=== PATIENT | female | born 1975 | race Hispanic/Latino ===

== ENCOUNTER 2020-05-18 10:02 | Day surgery (SDC) | payer OTHER ==
[2020-05-11 14:36] LABS: Urine Appearance CLEAR; Urine Bilirubin NEGATIVE (NEG); Urine Blood NEGATIVE (NEG); Urine Color YELLOW; Urine Glucose NEGATIVE (NEG); Urine Protein NEGATIVE (NEG); Urine Specific Gravity 1.015 (1.005-1.030); Urine Urobilinogen 0.2 mg/dL (0.2-1.0); Urine pH 6.5 (5.0-7.0)
[2020-05-11 14:38] LABS: Urine Microscopic Reflex NO UMIC
[2020-05-11 14:49] LABS: Absolute Lymphocytes (CBC) 1.5 K/uL (0.7-4.9); Basophils % 0.7 % (0-1.3); Hematocrit 41.2 % (36.0-45.0); Lymphocytes % 17.6 % (15.3-44.8); MPV 8.8 fL (7.6-11.3); RBC Red Blood Cell Count 4.46 M/uL (3.86-4.86)
[2020-05-18 10:32] LABS: Specific Gravity 1.015 (1.005-1.030)
[2020-05-18] MEDS ORDERED: Ringers Lactate 1,000 ML IV ONE (10:45)
[2020-05-18] MEDS ORDERED: SCOPOLAMINE HYDROBROMIDE PATCH TD ONE (10:45)
[2020-05-18] MEDS ORDERED: CEFAZOLIN/SWI 1gm 1 GM/10 ML SYR ONE (10:45)
[2020-05-18] MEDS ORDERED: CEFAZOLIN/SWI 2gm 2 GM/20 ML SYR ONE (10:51)
[2020-05-18] MEDS ORDERED: NA CHLORIDE 0.9% 1,000 ML ONE (11:23)
[2020-05-18] MEDS ORDERED: LIDOCAINE 1% MPF 5 ML VIAL ONE (11:54)
[2020-05-18] MEDS ORDERED: propofoL 200 MG/20 ML VIAL IV ONE (11:54)
[2020-05-18] MEDS ORDERED: FENTANYL CITR 100 MCG/2 ML ONE ×2 (11:54→13:06)
[2020-05-18] MEDS ORDERED: ROCURONIUM 50 MG/5 ML VIAL IV ONE ×2 (11:54→13:15)
[2020-05-18] MEDS ORDERED: MIDAZOLAM HCL 2 MG/2 ML INJ ONE (11:54)
[2020-05-18] MEDS: BUPIVACAINE 0.25% PF 30 ML VIAL ONE ×2 (12:12→12:45)
[2020-05-18] MEDS ORDERED: ONDANSETRON 4 MG/2 ML VIAL ONE (12:57)
[2020-05-18] MEDS ORDERED: GLYCOPYRROLATE 0.2 MG/ML SYR ONE (13:15)
[2020-05-18] MEDS ORDERED: NEOSTIGMINE 1 MG/ML -5 ML ONE (13:16)
[2020-05-18] MEDS ORDERED: KETOROLAC 30 MG/ML INJ ONE (13:20)
[2020-05-18] MEDS ORDERED: dexAMETHasone 4 MG/ML VIAL ONE (13:20)
[2020-05-18] MEDS: HYDROMORPHONE HCL 1 MG/ML INJ ONE ×4 (14:08→14:28)
[2020-05-18] MEDS ORDERED: PROMETHAZINE INJ 25 MG/ML AMP ONE (14:43)
[2020-05-18 15:02] VITALS: BP 108/66; TEMP 97.6; O2SAT 96
[2020-05-18] MEDS ORDERED: IBUPROFEN 200 MG TAB PO ONE (15:22)
[2020-05-18] MEDS ORDERED: IBUPROFEN 400 MG TAB ONE (15:23)
--- NOTE | 2020-05-19 02:01 | OP ---
Date of Procedure: 05/18/2020 Surgeon: Tameka Valentin MD [employer]: Smitha Alaniz. Preoperative Diagnoses: Menorrhagia, dysmenorrhea, and pelvic pain. Postoperative Diagnoses: Menorrhagia, dysmenorrhea, pelvic pain, and endometriosis. Procedures Performed: Diagnostic hysteroscopy, endometrial ablation with NovaSure, diagnostic laparo scopy, endometriosis excision, lysis of adhesions, and laparoscopic bilateral salpingectomy. Anesthesia: General endotracheal. Estimated Blood Loss: Minimal. Specimens: Bilateral tubes and left lateral wall endometriosis near the pelvic brim lateral to the i nfundibulopelvic ligament and left distal uterosacral ligament. Findings: Endometrial cavity undistorted. Excellent ablation effect after the ablation was done. T he cavity was irrigated and visualized. Endometriosis seen at the pelvic brim lateral to the tube and infundibulopelvic ligament in the area below the level of the natural attachment of the sigmoid colon and also in the mesosalpinx of the lef t side. There were adhesions of the colon here that had to be taken down and then later endometriosi s had to be excised and there was an implant on the peritoneum on the left side lateral to the distal uterosacral attachment between the ureteric tunnel and the tubes had some hydropic changes on both s ides, but no specific distortion. Ovaries unremarkable. Left ovarian cyst that appeared to be physi ological had to be drained in order for me to perform the surgery. Ablation details, cavity length 5 cm, width 4.8, power 132 oliver, and time was 1 minute and 19 second s. Then, the patient presented with bleeding and pelvic pain. She was evaluated with transvaginal ultra sound and endometrial sampling was performed. No evidence of atypia or malignancy was seen. Then, d iscussed all the different options and she chose to proceed with this. She was consented and brought to the OR. Description Of Procedure: After informed consent was verified, she was taken back to OR. She was de finitely completed with the childbearing, although she did not seek a sterilization procedure due to the ablation that needed to be done to control her bleeding. She understood that this would be a fet al contraindication for future conception and that tubal ligation would be appropriate or medically n ecessary, so she was consented appropriately if endometriosis was seen that she would undergo a salpi ngectomy also to decrease the risk of ovarian cancer in a patient with age of while perfor gideon a permanent sterilization procedure that by ACOG guidelines bilateral salpingectomy was indicate d. The patient was placed in supine fashion on the operating table. General anesthesia given, placed in dorsal lithotomy position using Brett stirrups. Abdomen, vulva, vagina, and perineum prepped and dr aped in a sterile fashion. Cunha placed to drain the bladder and speculum placed to expose the cervi x. Anterior lip grasped with 2 Allis clamps. Diagnostic hysteroscopy was performed and direct measu rements of the uterine cavity sounding length of 9 cm with cervical length of 4 cm was measured and c alculated cavity length of 5 cm was entered into the NovaSure generator. Then, once the scope was re moved, the NovaSure device was primed and placed into the uterine cavity, deployed. Cavity width was 4.8 cm. Then, started the cavity integrity test, which did not pass and this was because of the All is clamps in the front, so they were taken out and 1 single-tooth tenaculum was placed. Then, the te st passed without any problems. The patient did well. The ablation cycle was conducted uninterrupte d for 1 minute and 19 seconds. After the device was undeployed, hysteroscopy was performed. We irri gated the cavity. There was excellent ablation effect in the entire endometrial cavity. The scope w as pulled out. Diagnostic VCare was introduced. This area was draped. A 1 cm infraumbilical incision made with a scalpel using the open laparoscopy technique. Fascia was incised and cut, tagged with 0 Vicryl sutures on both edges. Peritoneum entered bluntly. S-retracto rs were placed, Chana introduced. Site of entry was checked, unremarkable. Appendix was normal and the upper abdominal and peritoneal surfaces all completely unremarkable. After the patient was plac ed in Trendelenburg, 5 mm left lower quadrant and suprapubic incisions were made. There were omental adhesions to the anterior abdominal wall. Using the LigaSure, these were first taken down. Then, a nother 5 port was placed in the left upper quadrant in order for me to remove the endometriosis above the level of the pelvic brim. So, once this was placed, then the adhesions were taken down in a sha rp fashion with scissors as well as with the LigaSure. Once all the adhesions were taken down from t he left lateral wall, infundibulopelvic ligament and mesosalpinx were well visualized and peritoneum was then opened lateral to the endometriosis implants sharply and then peritoneal dissection was perf ormed all the way around this implant widely, and once the peritoneum with implants was excised, this was removed and handed off for permanent pathology. There was a completely normal-appearing tissue after the dissection was done and excellent hemostasis. Then, the tubes were taken down with the LigaSure on both sides, then retrieved and labeled appropria tely. Pelvic peritoneum was excised in the area of the implant as described above. This was immedia tely lateral to the distal left uterosacral ligament between the uterine artery, ureteric tunnel, and the uterosacral. So, wide excision was performed carefully, underlying tissues protected with a mon opolar hook blade and some small areas of the fat had to be taken down for the implant to completely come out. This implant was handed off for permanent pathology. No other implants were seen anterior ly. There were scars of the previous scar. No other implants. After visualizing the appen jodi thorough irrigation and suction was performed in the pelvic cavity and trocars were re moved under direct vision. Gas was desufflated. All the injection skin and fascial sites were injec tobias with Marcaine at entry and exit. The fascial incision at the umbilicus after closely tagged 0 Vi cryl sutures tied to each other was injected with Marcaine as well of the umbilicus. All skin incisions were closed with interrupted 4-0 Vicryl sutures. VCare and Cunha were removed. Instr ument, needle, and sponge counts were correct at the end of the case. The patient tolerated the procedure well. She will be discharged home today. She has 1 week followup with us. GULSHAN/RASTA Voice ID: [id number] Report ID: [id number]
== END 2020-05-18 16:10 | disposition home or self-care (01) ==
LOC: OR 10:02
PROVIDERS: ATTEND Obstetrics & Gynecology
PROC: 0U5B8ZZ Destruction of Endometrium, Via Natural or Artificial Opening Endoscopic (ICD-10-PCS; 2020-05-18)
PROC: 0DBW4ZZ Excision of Peritoneum, Percutaneous Endoscopic Approach (ICD-10-PCS; 2020-05-18)
PROC: 0UT74ZZ Resection of Bilateral Fallopian Tubes, Percutaneous Endoscopic Approach (ICD-10-PCS; principal; 2020-05-18 12:00)
DX: N92.0 Excessive and frequent menstruation with regular cycle (principal); N94.6 Dysmenorrhea, unspecified; N94.3 Premenstrual tension syndrome; N80.3 Endometriosis of pelvic peritoneum; N83.8 Other noninflammatory disorders of ovary, fallopian tube and broad ligament; K66.0 Peritoneal adhesions (postprocedural) (postinfection); N83.202 Unspecified ovarian cyst, left side; Z11.59 Encounter for screening for other viral diseases; J45.40 Moderate persistent asthma, uncomplicated; Z79.51 Long term (current) use of inhaled steroids
CPT/HCPCS: 58661; 58563; 58662; 85025; 36415; 86900; 86850; 81025; 86901; 88302; 88305; 81003; U0002; J2704; J2550; J2250; J3010 ×2; J1170 ×2; J2710; J0690 ×2; J7120; J7030; J2405

== ENCOUNTER 2021-06-29 09:36 | Day surgery (SDC) | payer OTHER ==
[~2021-06-29 09:36] MED LIST: CEFOXITIN/SWI 2gm 2 GM/20 ML SYR IV ONE
[2021-06-29] MEDS ORDERED: MIDAZOLAM HCL 2 MG/2 ML INJ ONE (10:16)
[2021-06-29] MEDS ORDERED: propofoL 200 MG/20 ML VIAL IV ONE (10:16)
[2021-06-29] MEDS ORDERED: GLYCOPYRROLATE 0.2 MG/ML SYR ONE (10:18)
[2021-06-29] MEDS ORDERED: ONDANSETRON 4 MG/2 ML VIAL ONE ×2 (10:19→13:25)
[2021-06-29] MEDS ORDERED: FENTANYL CITR 250 MCG/5 ML ONE (10:19)
[2021-06-29] MEDS ORDERED: ROCURONIUM 50 MG/5 ML VIAL IV ONE (10:19)
[2021-06-29] MEDS ORDERED: LIDOCAINE 2% MPF 5 ML VIAL ONE (10:19)
[2021-06-29] MEDS ORDERED: Ringers Lactate 1,000 ML IV ONE ×2 (10:22→13:01)
[2021-06-29] MEDS ORDERED: CEFOXITIN/SWI 2gm 2 GM/20 ML SYR IVP ONE (11:00)
[2021-06-29] MEDS ORDERED: dexAMETHasone 10 MG/ML VIAL ONE (11:04)
[2021-06-29] MEDS ORDERED: CELECOXIB 100 MG CAPSULE ONE (11:17)
[2021-06-29] MEDS ORDERED: BUPIVACAINE 0.25% PF 10 ML VIAL ONE (11:49)
[2021-06-29] MEDS ORDERED: ACETAMINOPHEN 500 MG TAB PO ONE (12:00)
[2021-06-29] MEDS ORDERED: SCOPOLAMINE HYDROBROMIDE PATCH TD ONE (12:03)
--- NOTE | 2021-06-29 12:36 | P.OP ---
Preoperative diagnosis: Cholelithiasis with Cholecystitis Postoperative diagnosis: Cholelithiasis with Cholecystitis Primary procedure: Laparoscopic Cholecystectomy Secondary procedure: ICG Cholangiography Anesthesia: GETA + Local Estimated blood loss: <2cc Specimen: Gallbladder Findings: short cystic duct, distended gallbladder Complications: None Transferred to: Recovery Room Condition: Good
[2021-06-29] MEDS: HYDROMORPHONE HCL 1 MG/ML INJ ONE ×2 (13:00→13:05)
[2021-06-29] MEDS ORDERED: KETOROLAC 30 MG/ML INJ ONE (13:02)
[2021-06-29 13:07] VITALS: O2SAT 99
[2021-06-29] MEDS ORDERED: HYDROCODONE/APAP 10/325 TAB ONE (14:10)
[2021-06-29 14:43] VITALS: BP 120/64; TEMP 97
--- NOTE | 2021-06-30 00:25 | OP ---
Date of Procedure: 06/29/2021 Surgeon: Kofi Jimenez MD, Preoperative Diagnoses: Cholelithiasis, cholecystitis. Postoperative Diagnoses: Cholelithiasis, cholecystitis. Procedure Performed: 1.Laparoscopic cholecystectomy. 2.Indocyanine green cholangiography. Anesthesia: General endotracheal plus local with 0.25% Marcaine. Estimated Blood Loss: Less than 2 cc. Specimen: Gallbladder. Findings: Short cystic duct and distended gallbladder. Complications: None. Disposition: Patient transferred to recovery room in good condition. Procedure In Detail: After informed consent was obtained. Patient was brought to the operating room , prepped and draped in the usual sterile fashion. After adequate anesthesia achieved, a supraumbili savannah area was anesthetized with 0.25% Marcaine, sharply incised. A 5 mm, 0-degree optical trocar was introduced in the abdomen without complication. Insufflation was obtained to 15 mmHg at this time. No injury to vital structure upon entry into the abdomen. Two additional trocars were placed, one in the epigastrium, one in the right upper quadrant. Both were similarly anesthetized and sharply inci sed. The 5 mm trocars were placed under direct visualization without evidence of complication. Francia ent was positioned head up right-side up position. The umbilical trocar was then up-sized to a 12 mm under direct visualization without complication. A Ratcheted grasper was used to grasp the patient' s gallbladder, placed towards the patient's right shoulder. ICG cholangiography helped confirmed the position of the cystic duct common duct junction. Short cystic duct was appreciated at this point. A pericystic duct window was created using a combination electrocautery and blunt dissection with th e [place] retractor. The critical view of safety was obtained after the cystic duct and cystic lesa ry were both identified as 2 structures into the gallbladder with the posterior window showing no add itional structures. ICG cholangiography confirmed the anatomy as described above. A double titanium clips were placed doubly on the proximal side and singly on the cystic duct and cystic artery. Thes e 2 structures were ligated after critical view of safety was obtained. At this point, the gallbladd er was removed from the hepatic fossa without evidence of complication. No additional hemostatic ashish sures were required. The gallbladder placed in without evidence of complication and passe d off for pathologic examination. Re-insufflation was obtained at this time. The abdomen was copiou sly irrigated, and clips were found to be in good anatomic position. The remaining effluent was suct ioned out. Patient positioned in neutral position. The supraumbilical trocar site was closed using a Mauricio-Vishnu suture passer with 0 Vicryl in interrupted fashion with good approximation of tissu es. The abdomen was completely desufflated under direct visualization without evidence of complicati on. The remaining trocars were removed. All skin incisions were copiously irrigated and closed with 4-0 Monocryl in interrupted fashion. Dermabond was placed over top. Patient tolerated the procedur e without evidence of complication and transferred to PACU in good condition. All counts were correc t at the end of the case. IVAN/RASTA Voice ID: [id number] Report ID: [id number]
== END 2021-06-29 14:38 | disposition home or self-care (01) ==
LOC: OR 09:36
PROVIDERS: ATTEND Surgery
PROC: BF03YZZ Plain Radiography of Gallbladder and Bile Ducts using Other Contrast (ICD-10-PCS; 2021-06-29)
PROC: 0FT44ZZ Resection of Gallbladder, Percutaneous Endoscopic Approach (ICD-10-PCS; principal; 2021-06-29 11:00)
DX: K80.10 Calculus of gallbladder with chronic cholecystitis without obstruction (principal); Z20.822 Contact with and (suspected) exposure to COVID-19
CPT/HCPCS: 88304; 47563; U0003; J2704; J2250; J3010; J1100; J1170; J0694; J7120 ×2; J2405 ×2